=== PATIENT | female | born 2000 | race Caucasian/White ===

== ENCOUNTER 2022-11-28 16:54 | Emergency (ER) | payer MEDICAID ==
[~2022-11-28] VITALS: Ht 149.9 cm; Wt 62.0 kg
[2022-11-28] MEDS ORDERED: KETOROLAC 15MG/ML VIAL IM ONE (20:00)
[2022-11-28] MEDS ORDERED: CYCLOBENZAPRINE 10MG TABLET PO ONE (20:00)
[2022-11-28 20:18] VITALS: BP 120/93
[2022-11-28] MEDS ORDERED: NAPR-681 MT (21:14)
[2022-11-28] MEDS ORDERED: CYCL10TA21 MT (21:14)
== END 2022-11-28 21:56 | disposition home or self-care (01) ==
LOC: ER 16:54
DX: R51.9 Headache, unspecified (principal); V49.9XXA Car occupant (driver) (passenger) injured in unspecified traffic accident, initial encounter; Y93.89 Activity, other specified; Y92.89 Other specified places as the place of occurrence of the external cause; Y99.8 Other external cause status
CPT/HCPCS: 70450; 71045; 96372; 99285; J1885; Z7610